=== PATIENT | female | born 1970 | race Caucasian/White ===

== ENCOUNTER 2017-08-18 18:56 | Emergency (ER) | payer OTHER ==
[~2017-08-18] VITALS: Ht 172.7 cm; Wt 141.6 kg
[2017-08-18 22:31] VITALS: BP 126/79
== END 2017-08-18 22:32 | disposition home or self-care (01) ==
LOC: RME 18:56 → EME 18:56 → RME 22:32
DX: M25.561 Pain in right knee (principal); F17.200 Nicotine dependence, unspecified, uncomplicated; F32.9 Major depressive disorder, single episode, unspecified; M25.869 Other specified joint disorders, unspecified knee
CPT/HCPCS: 93971; 99281; 99283